=== PATIENT | female | born 2000 | race African-American/Black ===

== ENCOUNTER 2022-04-10 07:55 | Inpatient (IN) | payer MEDICAID ==
[~2022-04-10] VITALS: Ht 160 cm; Wt 52.2 kg
[2022-04-10] MEDS ORDERED: AMPICILLIN 2GM in NS 100ML 100 ML IV SCH (08:30)
[2022-04-10] MEDS ORDERED: LACTATED RINGERS 1,000 ML IV SCH (08:30)
[2022-04-10] MEDS ORDERED: METHYLERGONOVINE MALEATE 0.2 MG/ML IM PRN (08:30)
[2022-04-10] MEDS ORDERED: BUTORPHANOL TARTRATE 2 MG/ML VIAL IV PRN (08:30)
[2022-04-10] MEDS ORDERED: NALOXONE HCL 0.4 MG/ML 1ML VIAL IM PRN (08:30)
[2022-04-10] MEDS ORDERED: CARBOPROST TROMETHAMINE 250 MCG/ML AMPUL IM PRN (08:30)
[2022-04-10] MEDS: LIDOCAINE HCL 1% 20ML VIAL (Pyxis) INJ INFIL SCH ×2 (09:01→15:15)
[2022-04-10 09:40] LABS: BASOPHILS % 0.4 % (0.0-2.0); EOSINOPHILS % 0.4 % (0.0-5.0); HEMATOCRIT. 36.9 % (36.0-48.0); HEMOGLOBIN. 12.1 g/dL (12.0-16.0); LYMPHOCYTES % 17.4 % (20.0-50.0); MEAN CORPUSCULAR HEMOGLOBIN 27.9 pg (28.0-32.0); MEAN CORPUSCULAR VOLUME 85.5 fL (81.0-99.0); MEAN PLATELET VOLUME 10.9 fl (7.4-10.4); NEUTROPHILS % 73.8 % (40.0-76.0); PLATELET 193 x1000/uL (130-400); RED BLOOD CELL COUNT 4.32 mill/uL (4.2-5.4); RED CELL DISTRIBUTION WIDTH 12.8 % (11.6-14.6)
[2022-04-10 09:47] LABS: PARTIAL THROMBOPLASTIN TIME 29.2 sec (23.4-31.0); PROTHROMBIN TIME 10.4 sec (9.6-11.0)
[2022-04-10 09:50] LABS: CLARITY URINE CLEAR (CLEAR); COLOR URINE YELLOW (YELLOW); KETONES URINE NEGATIVE (NEGATIVE); LEUKOCYTE ESTERASE URINE 3+ (NEGATIVE); NITRITE URINE NEGATIVE (NEGATIVE); OCCULT BLOOD URINE 2+ (NEGATIVE); PH URINE 6.5 (4.5-8.0); PROTEIN URINE NEGATIVE (NEGATIVE); SPECIFIC GRAVITY URINE 1.007 (1.005-1.030)
[2022-04-10 10:13] LABS: *AMPHETAMINES SCREEN URINE NEGATIVE (NEGATIVE); *BARBITURATES SCREEN URINE NEGATIVE (NEGATIVE); *BENZODIAZEPINES SCREEN URINE NEGATIVE (NEGATIVE); *COCAINE SCREEN URINE NEGATIVE (NEGATIVE); CANNABINOID URINE SCREEN NEGATIVE (NEGATIVE); METHADONE URINE SCREEN NEGATIVE (NEGATIVE); OPIATES URINE SCREEN NEGATIVE (NEGATIVE); PHENCYCLIDINE URINE SCREEN NEGATIVE (NEGATIVE)
[2022-04-10 14:09] LABS: HEPATITIS B SURFACE ANTIGEN NEGATIVE
[2022-04-10] MEDS ORDERED: AMPICILLIN 1,000 MG in SODIUM CHLORIDE 0.9% 50 ML IV SCH (15:00)
[2022-04-10] MEDS: OXYTOCIN 30 UNITS/500ML NS PMX 500 ML IV SCH ×2 (15:09→15:17)
[2022-04-10 15:25] VITALS: BP 117/69
[2022-04-10 17:30] VITALS: BP 108/72
[2022-04-10 20:00] VITALS: BP 97/62
[2022-04-10] MEDS ORDERED: BENZOCAINE/LANOLIN/ALOE VERA SPRAY TOP PRN (22:15)
[2022-04-10] MEDS ORDERED: RHO(D) IMMUNE GLOBULIN 300 MCG/SYR IM PRN (22:15)
[2022-04-10] MEDS ORDERED: IBUPROFEN 400MG TABLET PO PRN (22:15)
[2022-04-11] VITALS: BP 101/65
[2022-04-11] MEDS: IBUPROFEN 800MG TABLET PO PRN ×3 (00:05→22:46)
[2022-04-11 04:00] VITALS: BP 99/60
[2022-04-11] MEDS: FERROUS SULFATE 325MG TABLET PO SCH ×2 (07:30→12:30)
[2022-04-11 08:00] VITALS: BP 103/65
[2022-04-11] MEDS: PRENATAL VIT/FE FUMARATE/FA TABLET PO SCH (10:11)
[2022-04-11 12:30] LABS: BASOPHILS % 0.2 % (0.0-2.0); EOSINOPHILS % 0.2 % (0.0-5.0); HEMATOCRIT. 36.8 % (36.0-48.0); HEMOGLOBIN. 12.1 g/dL (12.0-16.0); LYMPHOCYTES % 17.1 % (20.0-50.0); MEAN CORPUSCULAR HEMOGLOBIN 27.8 pg (28.0-32.0); MEAN CORPUSCULAR VOLUME 85.1 fL (81.0-99.0); MEAN PLATELET VOLUME 10.5 fl (7.4-10.4); MONOCYTES % 7.2 % (2.0-8.0); NEUTROPHILS % 75.3 % (40.0-76.0); PLATELET 218 x1000/uL (130-400); RED BLOOD CELL COUNT 4.33 mill/uL (4.2-5.4); RED CELL DISTRIBUTION WIDTH 12.7 % (11.6-14.6)
[2022-04-11 16:00] VITALS: BP 99/72
[2022-04-11 20:00] VITALS: BP 96/55
[2022-04-12 04:00] VITALS: BP 98/60
[2022-04-12] MEDS: IBUPROFEN 800MG TABLET PO PRN (04:53)
[2022-04-12 08:00] VITALS: BP 101/61
[2022-04-12] MEDS: FERROUS SULFATE 325MG TABLET PO SCH (09:17)
[2022-04-12] MEDS: PRENATAL VIT/FE FUMARATE/FA TABLET PO SCH (09:17)
== END 2022-04-12 12:30 | disposition home or self-care (01) | DRG 560 ==
LOC: OBSVTOIN 07:55 → 8 EST LDRP 07:55 → 8EST 14:45
PROVIDERS: ADMIT Obstetrics & Gynecology; ATTEND Obstetrics & Gynecology
PROC: 10E0XZZ Delivery of Products of Conception, External Approach (ICD-10-PCS; principal; 2022-04-10)
PROC: 0KQM0ZZ Repair Perineum Muscle, Open Approach (ICD-10-PCS; 2022-04-10)
DX: O70.1 Second degree perineal laceration during delivery (principal); Z37.0 Single live birth; Z20.822 Contact with and (suspected) exposure to COVID-19; Z3A.38 38 weeks gestation of pregnancy
CPT/HCPCS: 36415; 76805; 76818; 80305; 81003; 85025; 86592; 86703; 86762; 86850; 86900; 87340; 87426; 99281; J0290; J3490; J7120; J2590

== ENCOUNTER 2023-04-28 19:02 | Emergency (ER) | payer MEDICAID, OTHER ==
[~2023-04-28] VITALS: Ht 162.6 cm; Wt 56.0 kg
[2023-04-28] MEDS ORDERED: ACETAMINOPHEN 325MG TABLET PO STA (19:16)
[2023-04-28 19:24] VITALS: BP 114/70; PULSE 84; RESP 18; TEMP 98.9; O2SAT 98
[2023-04-28] MEDS ORDERED: BENZ200C52 MT (22:01)
[2023-04-28] MEDS ORDERED: ONDA4TAB50 MT (22:01)
== END 2023-04-28 22:51 | disposition home or self-care (01) ==
LOC: ER 19:02
DX: B34.8 Other viral infections of unspecified site (principal); B34.9 Viral infection, unspecified; R05.9 Cough, unspecified
CPT/HCPCS: 71045; 81025; 99291